=== PATIENT | male | born 1970 | race Caucasian/White ===

== ENCOUNTER → 2020-02-06 09:51 | Outpatient (BNVA) | payer BC, SELFPAY | PROVIDERS: Family Provider Family Medicine; PCP Family Medicine; Visit Provider Family Medicine | DX: I10 Essential (primary) hypertension (principal); E11.9 Type 2 diabetes mellitus without complications; E78.1 Pure hyperglyceridemia; E34.9 Endocrine disorder, unspecified; E78.5 Hyperlipidemia, unspecified; F33.42 Major depressive disorder, recurrent, in full remission | CPT/HCPCS: 80053; 80061; 82044; 84403; 85025 ==

== ENCOUNTER 2020-02-23 06:00 | Outpatient (RCR) | payer BC, SELFPAY | END 2020-02-28 06:00 | disposition home or self-care (01) | LOC: MPT 06:00 | PROVIDERS: Family Provider Family Medicine; PCP Family Medicine; Referring Provider Emergency Medicine; Visit Provider Emergency Medicine | DX: S43.439D Superior glenoid labrum lesion of unspecified shoulder, subsequent encounter (principal); X58.XXXD Exposure to other specified factors, subsequent encounter | CPT/HCPCS: 97110; 97140; 97161 ==

== ENCOUNTER 2020-03-02 07:57 | Outpatient (RCR) | payer BC, SELFPAY | END 2020-03-29 23:59 | disposition home or self-care (01) | LOC: MPT 07:57 | PROVIDERS: Family Provider Family Medicine; PCP Family Medicine; Referring Provider Emergency Medicine; Visit Provider Emergency Medicine | DX: S43.439D Superior glenoid labrum lesion of unspecified shoulder, subsequent encounter (principal); X58.XXXD Exposure to other specified factors, subsequent encounter | CPT/HCPCS: 97110; 97140 ==

== ENCOUNTER 2020-03-20 07:54 | Day surgery (SDC) | payer BC, SELFPAY ==
[2020-03-19 12:27] VITALS: BMI 34.8
[2020-03-20] VITALS (7 sets, daily range): BP systolic 93–136; BP diastolic 63–84; PULSE 58–91; RESP 16–18; TEMP 36.1–36.9; O2SAT 96–99
[2020-03-20] MEDS: sodium chloride 0.9% 1,000 ML 100 ML IV (08:28)
--- NOTE | 2020-03-20 08:36 | ANES.PREANE2 ---
Pre-Anesthetic Assessment Pre-Anesthetic Assessment: Height/Weight: Height 1.78 m Weight 110.223 kg Temp Pulse Resp BP Pulse Ox 97.7 F 58 L 18 136/84 97 03/20/20 08:09 03/20/20 08:09 03/20/20 08:09 03/20/20 08:09 03/20/20 08:09 Preop Diagnosis: Umbilical hernia Proposed Procedure: Operation Date: 03/20/20 09:10 Proposed Procedures p Open Umbilical Hernia Repair with Mesh Placement 67306 K42.9(Not Applicable) - Manjinder Salinas MD Last intake: Intake Last Liquid Date 03/19/20 Last Liquid Time 17:30 Social: Social History: Tobacco (quit 2015) and No alcohol Exam: Pre-Anes Outpt Exam: alert, oriented x 3, clear to auscultation bilaterally and regular rate & rhythm Airway: Submandibular: WNL Cervical ROM: WNL MP: 1 Dentition: Other (teeth ok) History/ROS: No significant history except as noted Pulmonary: Pulmonary: None reported CV/HEM: CV/HEM: HTN : : None reported Hepatic: Hepatic: None reported GI: GI: None reported Metabolic: Metabolic: Hyperlipidemia Musc/skel: Musc/skel: None reported Neuropsych: Neuropsych: Anxiety and Depression Anesthetic Plan: ASA status: 2 Anesthesia: Anesthesia Evaluation and General Risk of > 500 ml blood loss (7ml/kg in children): No Meds/Allergies Current Medications: Current Medications Generic Name Dose Route Start Last Admin Trade Name Freq PRN Reason Stop Dose Admin Sodium Chloride 1,000 mls @ 100 m ls/hr 03/20/20 07:15 03/20/20 08:28 Sodium Chloride 0.9% IV 03/21/20 07:14 100 mls/hr .Q10H KASANDRA Administration PFSH Anesthesia PFSH: Social History Smoking and tobacco status: former smoker Alcohol intake: never Data Anesthesia Cardiac Studies: No Data to Display
--- NOTE | 2020-03-20 09:50 | P.HP_ITS ---
Same Day Surgery H&P Indication for Procedure/HPI DATE OF PROCEDURE: March 20, 2020 CHIEF COMPLAINT/INDICATIONFOR SURGICAL PROCEDURE: My hernia hurtS PREOP DIAGNOSIS: Umbilical hernia PLANNED PROCEDRUE: Operation Date: 03/20/20 09:10 Proposed Procedures p Open Umbilical Hernia Repair with Mesh Placement 22225 K42.9(Not Applicable) - Manjinder Salinas MD This is a pleasant 49 years old gentleman referred to my practice because of symptomatic umbilical hernia for quite some time and has been interfering with his daily life activity, after thorough history physical examination and reviewing the chart patient was counseled for open umbilical hernia repair with possible mesh placement and patient agreed to proceed accordingly. ROS All systems have been reviewed negative except as for the above and or per problem list Medications/Allergies* Home Medications Medication Instructions Recorded Confirmed Type losartan 100 mg tablet 100 mg PO DAILY 02/06/20 03/19/20 History trazodone 50 mg tablet 50 mg PO DAILY 02/06/20 03/19/20 History atorvastatin 20 mg PO DAILY 03/19/20 03/19/20 History Allergies/Adverse Reactions Allergy/AdvReac Type Severity Reaction Status Date / Time codeine AdvReac Mild ADR-Abdominal Verified 03/20/20 09:52 Pain Current Medications: Generic Name Dose Route Start Last Admin Trade Name Freq PRN Reason Stop Dose Admin Sodium Chloride 1,000 mls @ 100 mls/hr 03/20/20 07:15 03/20/20 08:28 Sodium Chloride 0.9% IV 03/21/20 07:14 100 mls/hr .Q10H KASANDRA Administration Pertinent History/Comorbid Conditions* Medical History (Updated 02/09/20 @ 07:40 by Manjinder Salinas MD) Depression Dyslipidemia Essential hypertension Hypertriglyceridemia Hypotestosteronemia Umbilical hernia Surgical History (Updated 02/06/20 @ 09:26 by Laila Quiñones DO) History of circumcision History of hemorrhoidectomy History of tonsillectomy Family History (Updated 02/06/20 @ 09:20 by Keyla Hester LPN) Diabetes CAD (coronary artery disease) Cancer Hypertension Social History Smoking and tobacco status: former smoker Alcohol intake: never Pertinent Exam Findings alert, oriented x 3, clear to auscultation bilaterally and procedure specific exam findings (Abdominal examination nontender nondistended soft presence of chronically incarcerated umbilical hernia) Recommendations Surgery/Procedure today (Open umbilical hernia repair with possible mesh placement) Coding Level of Care Code Acute Sales Development Associate for Bea Lamar
[2020-03-20] MEDS: lidocaine 2% INJ 20 mL INJECTION (10:45)
--- NOTE | 2020-03-20 11:09 | P.OP_ITS ---
Operative Report Date of procedure: March 20, 2020 Pre-op Diagnosis: Umbilical hernia Post-op diagnosis: same (Fascial defect less than 1 inch in diameter) Post-op Findings: Incarcerated omental fat Procedure Done: Open umbilical hernia repair w primary closure Implants: No mesh Specimens removed/disposition: Hernial sac and content Surgeon: Manjinder Salinas Felled Seam Operator: Surgical danii Rader nurse Maria G Anesthesia: General (process safety management engineer Smart) Estimated blood loss (mL): 5 Condition: stable Disposition: same day Brief History: This is a pleasant 49 years old gentleman referred to my office with symptomatic umbilical hernia, after further history taking physical e xamination and reviewing the chart 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 Informed consent per chart Procedure: Another form Patient was identified in holding area and the site of the hernia was marked by me ,Patient was brought then to the operating room, general endotracheal anesthesia was administered by the anesthesia provider.prophylactic IV antibiotics were given per protocol Time-out was done verifying the patient's name/date of /planned procedure and destination after the procedure, all were in agreement. SCDs confirmed to be functioning, preoperative antibiotics administered per protocol, and beta mike protocol was confirmed. Prep and drape of the abdomen was done under the usual sterile technique. I started by Infraumbilical skin incision, I was able to identify the incarcerated Umblical hernia, dissection was carried all the way down to the fascia, hernia sac was then opened and the sac was excised in addition to excess omental tissues. Tissues excise sent for permanent pathology I was able to free the overlying fat on top of the fascia, facilitate primary closure At that point the fascial defect was about less than an inch in diameter, after freeing all the adhesions, under direct visualization I was able to use #1 PDS to repair the defect primarily, as an interrupted horizontal mattress sutures, thorough irrigation of the wound was then achieved and hemostasis. Followed by an additional continuous layer of #1 PDS 2-0 Vicryl was used to attach the umbilicus to the underlying fascia, followed by deep dermal interrupted stitches, followed by 3-0 Vicryl, then 4-0 Monocryl was used for subcuticular closure of the skin incision. Lidocaine 2% was used for local infiltration to help postoperative pain Dermabond was then applied/abdominal binder was then applied Counts of sponges and instruments were completed at the end of the procedure Patient tolerated the procedure well and was taken to the recovery area in stable condition I was present for the whole entire procedure
--- NOTE | 2020-03-20 11:27 | SUR.PHASEI ---
RECIEVED PT ON RA GOOD RESP EFFORT NOTED PT AWAKE ALERT DENIES PAIN ABD BINDER IN PLACE
== END 2020-03-20 12:00 ==
PROVIDERS: Family Provider Family Medicine; PCP Family Medicine; Visit Provider Surgery
PROC: (CPT 49587; principal; 2020-03-20 09:10)
DX: K42.0 Umbilical hernia with obstruction, without gangrene (principal); F32.9 Major depressive disorder, single episode, unspecified; E78.5 Hyperlipidemia, unspecified; I10 Essential (primary) hypertension; Z82.49 Family history of ischemic heart disease and other diseases of the circulatory system; Z83.3 Family history of diabetes mellitus; Z87.891 Personal history of nicotine dependence
CPT/HCPCS: 49587; 12345; 88302; J0131; J0690; J1100; J2405; J2704; J2710; J3010; J3490; J7030

== ENCOUNTER 2020-03-30 06:00 | Outpatient (RCR) | payer BC, SELFPAY | END 2020-04-29 23:59 | disposition home or self-care (01) | LOC: MPT 06:00 | PROVIDERS: Family Provider Family Medicine; PCP Family Medicine; Referring Provider Emergency Medicine; Visit Provider Emergency Medicine | DX: S43.439D Superior glenoid labrum lesion of unspecified shoulder, subsequent encounter (principal); X58.XXXD Exposure to other specified factors, subsequent encounter | CPT/HCPCS: 97110; 97140 ==

== ENCOUNTER 2020-04-30 06:00 | Outpatient (RCR) | payer BC, SELFPAY | END 2020-05-29 23:59 | disposition home or self-care (01) | LOC: MPT 06:00 | PROVIDERS: PCP Family Medicine; Visit Provider Emergency Medicine | DX: S43.439D Superior glenoid labrum lesion of unspecified shoulder, subsequent encounter (principal); X58.XXXD Exposure to other specified factors, subsequent encounter | CPT/HCPCS: 97110; 97140 ==

== ENCOUNTER 2020-05-30 07:19 | Day surgery (SDC) | payer BC, SELFPAY ==
[2020-05-28 16:52] VITALS: BMI 35.4
[2020-05-30 07:39] VITALS: BP 129/78; PULSE 81; RESP 18; TEMP 36.4; O2SAT 99
--- NOTE | 2020-05-30 07:46 | ANES.PREANE2 ---
Pre-Anesthetic Assessment Pre-Anesthetic Assessment: Height/Weight: Height 1.8 m Weight 81.647 kg Temp Pulse Resp BP Pulse Ox 97.6 F 81 18 129/78 99 05/30/20 07:39 05/30/20 07:39 05/30/20 07:39 05/30/20 07:39 05/30/20 07:39 Preop Diagnosis: History of colon polyps Proposed Procedure: Operation Date: 05/30/20 08:00 Proposed Procedures p COLONOSCOPY 95947/Z86.010(Not Applicable) - Manjinder Salinas MD Familial anesthetic complications: None Was Beta Kip taken within 24 hours: N/A Last intake: Intake Last Liquid Date 05/29/20 Last Liquid Time 21:00 Last Solid Date 05/28/20 Social: Social History: No alcohol and No tobacco Exam: Pre-Anes Outpt Exam: alert, oriented x 3, clear to auscultation bilaterally and regular rate & rhythm Airway: Cervical ROM: WNL MP: 2 Dentition: Full CV/HEM: CV/HEM: HTN : : None reported Hepatic: Hepatic: None reported GI: GI: None reported Metabolic: Metabolic: Hyperlipidemia Musc/skel: Musc/skel: None reported Neuropsych: Neuropsych: None reported Anesthetic Plan: ASA status: 2 Anesthesia: MAC Risk of > 500 ml blood loss (7ml/kg in children): No PFSH Anesthesia PFSH: Medical History (Updated 05/14/20 @ 13:31 by Manjinder Salinas MD) Depression Dyslipidemia Essential hypertension Hypertriglyceridemia Hypotestosteronemia Umbilical hernia Surgical History History of circumcision History of hemorrhoidectomy History of tonsillectomy History of umbilical hernia repair (~02/2020) Family History Other CAD (coronary artery disease) Cancer Diabetes Hypertension Social History Smoking and tobacco status: former smoker Alcohol intake: never Data Anesthesia Cardiac Studies: No Data to Display
[2020-05-30] MEDS: sodium chloride 0.9% 1,000 ML 30 ML IV (07:48)
--- NOTE | 2020-05-30 08:18 | W.PM.OPSUD ---
Surgery/Procedure H&P Update DATE OF PROCEDURE: May 30, 2020 DATE H&P PERFORMED: 05/14/20 H&P UPDATE INFORMATION: I have reviewed H&P completed within last 30 days, I have examined patient prior to procedure and No changes to prior documentation PREOP DIAGNOSIS: History of colon polyps PRIMARY INDICATION FOR PROCEDURE: The same PLANNED PROCEDURE: Operation Date: 05/30/20 08:00 Proposed Procedures p COLONOSCOPY 63940/Z86.010(Not Applicable) - Manjinder Salinas MD
[2020-05-30 08:35] VITALS: BP 100/64; PULSE 67; RESP 16; TEMP 36.6; O2SAT 97
[2020-05-30 08:51] VITALS: BP 111/65; PULSE 69; RESP 18; O2SAT 95
== END 2020-05-30 09:05 | disposition home or self-care (01) ==
PROVIDERS: PCP Family Medicine; Visit Provider Surgery
PROC: 0DJD8ZZ Inspection of Lower Intestinal Tract, Via Natural or Artificial Opening Endoscopic (ICD-10-PCS; CPT 45378; principal; 2020-05-30 08:00)
DX: Z86.010 Personal history of colon polyps (principal); K57.30 Diverticulosis of large intestine without perforation or abscess without bleeding; E78.5 Hyperlipidemia, unspecified; I10 Essential (primary) hypertension; Z82.49 Family history of ischemic heart disease and other diseases of the circulatory system; Z83.3 Family history of diabetes mellitus; Z87.891 Personal history of nicotine dependence
CPT/HCPCS: 12345; 45378; J2704; J7030

== ENCOUNTER → 2020-07-12 08:17 | Outpatient (BNVA) | payer BC, SELFPAY | PROVIDERS: PCP Family Medicine; Referring Provider Family Medicine; Visit Provider Family Medicine | DX: E78.5 Hyperlipidemia, unspecified (principal); E34.9 Endocrine disorder, unspecified | CPT/HCPCS: 36415; 80053; 80061; 84403 ==

== ENCOUNTER 2020-10-17 06:00 | Outpatient (RCR) | payer BC, SELFPAY | END 2020-10-29 23:59 | disposition home or self-care (01) | LOC: MPT 06:00 | PROVIDERS: PCP Family Medicine; Referring Provider Physician Assistant Surgical; Visit Provider Physician Assistant Surgical | DX: Z47.89 Encounter for other orthopedic aftercare (principal) | CPT/HCPCS: 97110; 97161 ==

== ENCOUNTER 2020-10-30 06:00 | Outpatient (RCR) | payer BC, SELFPAY | END 2020-11-29 23:59 | disposition home or self-care (01) | LOC: MPT 06:00 | PROVIDERS: PCP Family Medicine; Referring Provider Physician Assistant Surgical; Visit Provider Physician Assistant Surgical | DX: Z47.89 Encounter for other orthopedic aftercare (principal) | CPT/HCPCS: 97110; 97140; G0283 ==

== ENCOUNTER 2020-11-30 06:00 | Outpatient (RCR) | payer BC, SELFPAY | END 2020-12-30 23:59 | disposition home or self-care (01) | LOC: MPT 06:00 | PROVIDERS: PCP Family Medicine; Referring Provider Physician Assistant Surgical; Visit Provider Physician Assistant Surgical | DX: Z47.89 Encounter for other orthopedic aftercare (principal) | CPT/HCPCS: 97110; 97140 ==

== ENCOUNTER 2020-12-31 06:00 | Outpatient (RCR) | payer BC, SELFPAY | END 2021-01-27 23:59 | disposition home or self-care (01) | LOC: MPT 06:00 | PROVIDERS: PCP Family Medicine; Referring Provider Physician Assistant Surgical; Visit Provider Physician Assistant Surgical | DX: Z47.89 Encounter for other orthopedic aftercare (principal) | CPT/HCPCS: 97110; 97140 ==

== ENCOUNTER → 2021-01-31 07:59 | Outpatient (BNVA) | payer BC, SELFPAY | PROVIDERS: PCP Family Medicine; Referring Provider Family Medicine; Visit Provider Family Medicine | DX: I10 Essential (primary) hypertension (principal); E78.5 Hyperlipidemia, unspecified; E34.9 Endocrine disorder, unspecified; Z12.5 Encounter for screening for malignant neoplasm of prostate | CPT/HCPCS: 80053; 80061; 82043; 84153; 84403; 85007; 85027 ==

== ENCOUNTER 2021-02-21 12:00 | Outpatient (CLI) | payer BC, SELFPAY | END 2021-02-21 12:01 | disposition home or self-care (01) | LOC: SLEEP 03-12 12:37 | PROVIDERS: PCP Family Medicine; Visit Provider Family Medicine | DX: R40.0 Somnolence (principal) | CPT/HCPCS: G0399 ==

== ENCOUNTER → 2021-08-20 08:09 | Outpatient (BNVA) | payer BC, SELFPAY | PROVIDERS: PCP Family Medicine; Visit Provider Family Medicine | DX: E34.9 Endocrine disorder, unspecified (principal); I10 Essential (primary) hypertension | CPT/HCPCS: 80053; 84403 ==

== ENCOUNTER 2021-09-04 14:17 | Outpatient (CLI) | payer BC, SELFPAY ==
--- NOTE | 2021-09-04 14:30 | CT_ITS ---
WS: [id number] CT scan of the chest without IV contrast, additional two-dimensional coronal and sagittal reconstruct ion was performed. 09/04/2021 Clinical Data: pulmonary nodules found in 2019 Comparison: None. DLP: 1072.[address] scans at [facility] use at least one of these dose optimization techniques: automated e xposure control; mA and/or kV adjustment per patient size (includes targeted exams where dose is matc hed to clinical indication); or iterative reconstruction. Findings: No nodules, masses or effusions are seen. There is a calcified granuloma in the medial anterior aspec t of the right upper lobe seen best on axial image 17 of 65. The heart size is normal with no pericar dial effusion. No pneumonia or pneumothorax is seen. The pulmonary arterial system and thoracic aorta demonstrate no abnormalities or dilatations. There is no axillary or significant mediastinal adenopa thy. The upper abdomen shows no abnormalities. CT/CT chest w con* [id number] Impression: 1. Negative for significant lung nodules. 2. Negative for acute cardiopulmonary disease.
[2021-09-04] MEDS: iohexol 350 mg/mL 100 mL Btl IV (14:49)
== END 2021-09-04 14:18 | disposition home or self-care (01) ==
PROVIDERS: PCP Family Medicine; Visit Provider Family Medicine
DX: R91.8 Other nonspecific abnormal finding of lung field (principal)
CPT/HCPCS: 71260; 80053; 84403; Q9967

== ENCOUNTER 2021-10-15 09:54 | Outpatient (RCR) | payer BC, SELFPAY | END 2021-10-29 23:59 | disposition home or self-care (01) | LOC: MPT 09:54 | PROVIDERS: PCP Family Medicine; Referring Provider Physician Assistant Surgical; Visit Provider Physician Assistant Surgical | DX: Z47.89 Encounter for other orthopedic aftercare (principal) | CPT/HCPCS: 97110; 97140 ==

== ENCOUNTER → 2022-02-17 09:11 | Outpatient (BNVA) | payer BC, SELFPAY | PROVIDERS: PCP Family Medicine; Visit Provider Family Medicine | DX: I10 Essential (primary) hypertension (principal); E78.5 Hyperlipidemia, unspecified | CPT/HCPCS: 80053; 80061; 82043; 85025 ==

== ENCOUNTER → 2022-08-20 09:52 | Outpatient (BNVA) | payer BC, SELFPAY | PROVIDERS: PCP Family Medicine; Visit Provider Family Medicine | DX: I10 Essential (primary) hypertension (principal); Z13.6 Encounter for screening for cardiovascular disorders | CPT/HCPCS: 80053; 84403 ==

== ENCOUNTER → 2023-01-30 09:37 | Outpatient (BNVA) | payer BC, SELFPAY | PROVIDERS: PCP Family Medicine; Visit Provider Family Medicine | DX: I10 Essential (primary) hypertension (principal); E78.5 Hyperlipidemia, unspecified; E34.9 Endocrine disorder, unspecified; Z12.5 Encounter for screening for malignant neoplasm of prostate | CPT/HCPCS: 80053; 80061; 82043; 83721; 84403; 85025; G0103 ==

== ENCOUNTER → 2023-07-31 10:08 | Outpatient (BNVA) | payer BC, SELFPAY | PROVIDERS: PCP Family Medicine; Visit Provider Family Medicine | DX: E34.9 Endocrine disorder, unspecified (principal); M31.6 Other giant cell arteritis; E55.9 Vitamin D deficiency, unspecified | CPT/HCPCS: 80053; 82306; 84403; 85025; 85651; 86140 ==

== ENCOUNTER 2023-08-27 07:05 | Outpatient (CLI) | payer BC, SELFPAY ==
--- NOTE | 2023-08-27 07:15 | MR_ITS ---
WS: [id number] MRI HEAD WITH CONTRAST TECHNIQUE: Sagittal T1, T2 axial, T2 axial FLAIR, axial susceptibility weighted imaging, axial diffus ion weighted images, and coronal T2 images were obtained. Pre and post-T1 axial and post T1 coronal i mages. ADC and FSPGR images. CLINICAL INFORMATION: headache with cough COMPARISON: None. FINDINGS: No evidence of restricted diffusion to suggest acute ischemia. Ventricular system and basal cisterns are patent. Minimal small vessel changes. No significant parenchymal volume loss. Normal posterior fo ssa. Normal vascular flow voids at the skull base. No extra-axial fluid collections. No evidence of m ass or mass effect. Paranasal sinuses and mastoid air cells are well aerated. No hemosiderin on the s usceptibly weighted images. Normal optic chiasm and pituitary infundibulum. No abnormal gadolinium enhancement. Normal dural veno us sinuses. Normal posterior nasopharynx. Normal parapharyngeal fat. IMPRESSION: 1. No evidence of restricted diffusion to suggest acute ischemia. 2. Minimal small vessel changes. No significant parenchymal volume loss. 3. No hemosiderin on susceptibility-weighted images. 4. No abnormal gadolinium enhancement. 5. No other suspicious findings.
== END 2023-08-27 07:06 | disposition home or self-care (01) ==
PROVIDERS: PCP Family Medicine; Visit Provider Family Medicine
DX: G44.83 Primary cough headache (principal)
CPT/HCPCS: 70553; A9577

== ENCOUNTER → 2023-10-02 09:00 | Outpatient (BNVA) | payer BC, SELFPAY | PROVIDERS: PCP Family Medicine; Referring Provider Family Medicine; Visit Provider Family Medicine | DX: R79.89 Other specified abnormal findings of blood chemistry (principal); E34.9 Endocrine disorder, unspecified | CPT/HCPCS: 84403 ==

== ENCOUNTER → 2023-12-05 10:15 | Outpatient (BNVA) | payer BC, SELFPAY | PROVIDERS: PCP Family Medicine; Visit Provider Nurse Practitioner Family | DX: R68.89 Other general symptoms and signs (principal) | CPT/HCPCS: 87400 ==

== ENCOUNTER → 2024-05-03 09:26 | Outpatient (BNVA) | payer BC, SELFPAY | PROVIDERS: PCP Family Medicine; Visit Provider Family Medicine | DX: Z12.5 Encounter for screening for malignant neoplasm of prostate (principal); E34.9 Endocrine disorder, unspecified; I10 Essential (primary) hypertension; Z13.6 Encounter for screening for cardiovascular disorders | CPT/HCPCS: 80053; 80061; 84403; 85025; G0103 ==

== ENCOUNTER → 2024-11-16 08:58 | Outpatient (BNVA) | payer BC, SELFPAY | PROVIDERS: PCP Family Medicine; Visit Provider Family Medicine | DX: I10 Essential (primary) hypertension (principal); E34.9 Endocrine disorder, unspecified; F17.219 Nicotine dependence, cigarettes, with unspecified nicotine-induced disorders | CPT/HCPCS: 80053; 84402; 84403 ==

== ENCOUNTER → 2025-05-03 13:38 | Outpatient (BNVA) | payer OTHER, SELFPAY | PROVIDERS: PCP Family Medicine; Visit Provider Internal Medicine Cardiovascular Disease | DX: R07.9 Chest pain, unspecified (principal) | CPT/HCPCS: 93005 ==

== ENCOUNTER → 2025-05-17 09:05 | Outpatient (BNVA) | payer OTHER, SELFPAY | PROVIDERS: PCP Family Medicine; Visit Provider Family Medicine | DX: Z12.5 Encounter for screening for malignant neoplasm of prostate (principal); Z13.1 Encounter for screening for diabetes mellitus; I10 Essential (primary) hypertension; E78.5 Hyperlipidemia, unspecified; E34.9 Endocrine disorder, unspecified; R63.1 Polydipsia | CPT/HCPCS: 80053; 80061; 83036; 83721; G0103 ==

== ENCOUNTER 2025-05-18 12:49 | Outpatient (CLI) | payer OTHER, SELFPAY ==
--- NOTE | 2025-05-18 | ECG_ITS ---
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 Interpretive Statements Intraprocedure shortess of breath; Symptoms resoled by discharge; Lung unchanged pre/post procedure PROCEDURE: At the baseline, the patient's blood pressure was 125/71 with a heart rate of 88. The baseline electrocardiogram showed normal sinus rhythm with normal ST-Ts.. The patient exercised for 9 minutes and 54 on a standard Niko protocol. Patient attained a maximum heart rate of 153 beats per minute(90% of the maximum predicted heart rate) with a blood pressure at the peak exercise of 186/45 mm Hg. The EKG at the peak exercise revealed no significant change. Patient did not have any chest pain or any significant cardiac arrhythmias with the exercise During the recovery phase, there were no new changes. Blood pressure at the end of the recovery phase was 136/49 mm Hg with a heart rate of 80s per minute. CONCLUSION: 1. Normal EKG response to treadmill exercise 2. No exercise-induced chest pain or cardiac arrhythmia 3. Exercise tolerance, attained a maximum of METs Electronically Signed On 05-21-2025 21:34:27 CDT by Venessa Hines M.D. [email or web address]
--- NOTE | 2025-05-18 12:53 | USCV_ITS ---
Childress Ben Age: 54 Gender: M : 1970 Exam Date: 05/18/2025 13:04 Ordering Phys: Royal Fisher MD ([email or web address]) Technologist: [place] [facility] [place] cp/sob Rhythm: Sinus Patient History: HTN Cardiac Medications: ARB Medications in past 24 hours: NONE Contrast: Stress Results Protocol: Niko Total dose(mL): Exercise Duration (min:sec): 9:54 METS: 13.5 Resting HR: 76 Resting BP: 125 / 71 Peak HR: 153 Peak BP: 186 / 71 Max Predicted HR: 166 92 % Max Predicted HR Target HR: 141 Double Product: 78282 Stress Summary: SOB THAT RESOLVED QUICKLY DURING RECOVERY BP Response: NORMAL Reason for Termination: TARGET HR REACHED Cardiac Symptoms: NONE ECG Analysis Resting ECG: Stress ECG: Arrhythmia: MEASUREMENTS (Male/Female) Normal Values FINDINGS Baseline: Normal left ventricle ejection fraction no wall motion abnormality At peak exercise level: Good augmentation of left ventricle cavity no new wall motion abnormality Recovery: No wall motion abnormality CONCLUSIONS Normal echocardiographic portion of the stress test. EKG segment will be documented separately. Royal Fisher MD (Electronically Signed) Final Date: 04 June 2025 22:37 S
[2025-05-18 12:54] VITALS: BMI 35.4
[2025-05-18 13:32] VITALS: BP 140/52; PULSE 80
== END 2025-05-18 12:50 | disposition home or self-care (01) ==
LOC: CDL 12:50
PROVIDERS: PCP Family Medicine; Visit Provider Internal Medicine Cardiovascular Disease
DX: R07.9 Chest pain, unspecified (principal); R06.02 Shortness of breath
CPT/HCPCS: 93017; 93350

== ENCOUNTER → 2025-10-03 14:39 | Outpatient (BNVA) | payer OTHER, SELFPAY | PROVIDERS: PCP Family Medicine; Visit Provider Nurse Practitioner | DX: R68.89 Other general symptoms and signs (principal) | CPT/HCPCS: 87400; 87426 ==